=== PATIENT | female | born 1960 | race Caucasian/White ===

== ENCOUNTER 2017-07-30 07:59 | Day surgery (SDC) | payer OTHER ==
[~2017-07-30 07:59] MED LIST: LIDOCAINE HCL 1% MPF SOL ONE; PROPOFOL 500 MG/50 ML EMU IV ONE
[2017-07-30 10:48] VITALS: BP 112/68; PULSE 61; RESP 18; TEMP 97.7; O2SAT 100
== END 2017-07-30 11:25 | disposition home or self-care (01) | DRG 951 ==
LOC: SURG 07:59
PROVIDERS: ATTEND Surgery
DX: Z12.11 Encounter for screening for malignant neoplasm of colon (principal); Z80.0 Family history of malignant neoplasm of digestive organs; Z86.010 Personal history of colon polyps
CPT/HCPCS: J2001; J2704